=== PATIENT | female | born 2005 | race African-American/Black ===

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

== ENCOUNTER 2024-02-10 00:25 | Emergency (ER) | payer OTHER ==
[~2024-02-10 00:25] MED LIST: CEPH250C PO
== END 2024-02-10 01:31 | disposition left against medical advice (07) ==
LOC: ER 00:25
DX: N89.8 Other specified noninflammatory disorders of vagina (principal); Z53.21 Procedure and treatment not carried out due to patient leaving prior to being seen by health care provider